=== PATIENT | female | born 1995 | race Caucasian/White ===

== ENCOUNTER 2021-12-25 22:07 | Emergency (ER) | payer MEDICAID ==
[~2021-12-25] VITALS: Ht 162.6 cm; Wt 117.7 kg
[2021-12-25] MEDS ORDERED: SODIUM CHLORIDE 0.9% 1,000 ML IV ONE (23:00)
[2021-12-25] MEDS ORDERED: IPRATROPIUM/ALBUTEROL 0.5-3(2.5)MG/3ML NEB HHN ONE (23:00)
[2021-12-26 01:58] VITALS: BP 149/84
[2021-12-26] MEDS ORDERED: ALBU6.7H9 INH (02:14)
[2021-12-26] MEDS ORDERED: GUAI-453 MT (02:14)
== END 2021-12-26 02:39 | disposition home or self-care (01) ==
LOC: ER 22:07
DX: R07.89 Other chest pain (principal); R05.9 Cough, unspecified; Z20.822 Contact with and (suspected) exposure to COVID-19
CPT/HCPCS: 71045; 81025; 82542; 87426; 87804; 93005; 94640; 96360; 99285; C9803; J7030; Z7610